=== PATIENT | female | born 1980 | race Caucasian/White ===

== ENCOUNTER 2017-12-09 07:00 | Day surgery (SDC) | payer OTHER ==
[~2017-12-09] VITALS: Ht 160 cm; Wt 81.7 kg
--- NOTE | 2017-12-09 09:11 | NUR ---
12/09/17 0911 Mattie Masterson 0912 PT ARRIVED WITH ORAL AIRWAY IN PLACE, RESP EVEN AND UNLABORED, ON 6L VIA MASK. PT NONAROUSABLE TO PAINFUL STIMULI. HEAD TILTED BACK TO MAINTAIN AIRWAY.
--- NOTE | 2017-12-09 09:58 | NUR ---
PT ARRIVES TO DS AWAKE AND ALERT. PT DENIES ANY NAUSEA AND RATES PAIN 3/10 AND SAYS "FEELS SIMILAR TO STREP THROAT." PT PROVIDED WATER, JELLO AND POPCICLE ON ARRIVAL. PT TOLERATES PO WELL SO FAR. SCD'S IN PLACE, CALL LIGHT AT PT LEFT SIDE. NO C/O AT THIS TIME.
--- NOTE | 2017-12-09 10:46 | NUR ---
PT DOING WELL, STATES PAIN IS NO WORSE THAN ON ARRIVAL. PT DENIES ANY NAUSEA AND IS TOLERATING PO. PT CURRENTLY EATING JELLO. PT MOTHER AT BEDSIDE. ENCOURAGED TO USE CALL LIGHT FOR ANY PROBLEMS.
--- NOTE | 2017-12-09 11:19 | NUR ---
PT USES CALL LIGHT TO LET RN KNOW SHE FEELS THE URGE TO VOID. PT UP TO BR WITH RN ASSIST. PT AMBULATES TO BR WELL, BUT ONCE IN BR PT STATES, "I FELT LIKE I WAS GOING TO PASSOUT." AND SAT DOWN ON THE FLOOR. PT USES BR CALL LIGHT FOR ASSISTANCE IN GETTING UP AND BACK TO RM. VSS ONCE IN RM. PT PROVIDED COLD WASH CLOTH TO PLACE ON FOREHEAD. ONCE IN RM PT STATES SHE NO LONGER FEELS DIZZY AND IS "FELLING BETTER."
[2017-12-09] MEDS ORDERED: HYDROCODONE-AC473 ML PO (11:24)
--- NOTE | 2017-12-09 12:30 | NUR ---
[id number]: DC CRITERIA MET AND PT WOULD LIKE TO GO HOME. DC INSTRUCTIONS GIVEN TO PT IN PRESENCE OF PT AND MOTHER AT BEDSIDE. PT HAD QUESTIONS REGARDING MEDICATION. QUESTIONS ANSWERED. PT DC'S VIA WC FROM [facility] RM 4.
--- NOTE | 2017-12-09 15:02 | NUR ---
PT IS ALERT AND ORIENTED. HER MOTHER CHIP WAS PRESENT FOR SUPPORT. PT REALLY SEEMS RADY FOR SOME RELIEF-SHE IS A BUSY MOTHER OF 4 CHILDREN AND NEEDS TO FEEL BETTER TO CARE FOR THEM. PT SEEMED PREPARED REQUESTED PRAYER, WILL FOLLOW NEEDED
--- NOTE | 2017-12-09 16:06 | OR ---
[facility] [address] [place], [place] [address] Signed DATE OF OPERATION: 12/09/2017 SURGEON: Greg Schroeder MD PREOPERATIVE DIAGNOSIS: Chronic tonsillitis. POSTOPERATIVE DIAGNOSIS: Chronic tonsillitis. PROCEDURE: Tonsillectomy. ANESTHESIA: General orotracheal; NOZZLE AND SLEEVE WORKER, Tomeka Zhang. PREOPERATIVE HISTORY: Pilar is a 37-year-old lady with chronic tonsillitis, multiple infections, and taken to the operating room for the above-mentioned procedure. OPERATIVE PROCEDURE AND FINDINGS: After informed consent, the patient was taken to the operating room and placed in the supine position where general orotracheal anesthesia was induced. The patient and the procedure were verified. The patient was repositioned. McIvor mouth gag placed into suspension. Headlight exam of the pharynx showed chronically infected appearing . Tonsils 2+, obstructive, nonacute. Left tonsil was grasped with a tenaculum, retracted medially and removed from its fossa with mucosal sparing incisions with coblation. The field was dry after the procedure. Same procedure on the right tonsil. Tonsils were sent to pathology. Re-inspection of the tonsil fossa showed no bleeding points. The pharynx was suctioned clear of blood secretions. The mouth gag was removed. The patient was awakened, extubated, and transported to the recovery room in good condition. COMPLICATIONS: No complications. BLOOD LOSS: Minimal. SPECIMEN: Electronically Signed By: GREG SCHROEDER MD 12/09/17 1606 PATIENT NAME: PILAR RODRÍGUEZ OPERATIVE REPORT DATE OF : 80 REPORT #: [id number] PHYSICIAN: GREG SCHROEDER MD PCP: NO PRIMARY CARE PHYSICIAN REPORT IS CONFIDENTIAL AND NOT TO BE RELEASED WITHOUT AUTHORIZATION [address], [place] [address] Signed To pathology. DRAINS: No drains. Greg Schroeder MD GC/MODL /[id number] Copies: ~ Electronically Signed By: GREG SCHROEDER MD 12/09/17 1606 PATIENT NAME: PILAR RODRÍGUEZ OPERATIVE REPORT DATE OF : 80 REPORT #: [id number] PHYSICIAN: GREG SCHROEDER MD PCP: NO PRIMARY CARE PHYSICIAN REPORT IS CONFIDENTIAL AND NOT TO BE RELEASED WITHOUT AUTHORIZATION
== END 2017-12-09 12:00 | disposition home or self-care (01) ==
LOC: DS 07:00 → OPS 08:00 → DS 12:00
PROVIDERS: Otolaryngology
PROC: 0C5PXZZ Destruction of Tonsils, External Approach (ICD-10-PCS; principal; 2017-12-09 08:00)
DX: J35.01 Chronic tonsillitis (principal); Z88.0 Allergy status to penicillin; Z88.1 Allergy status to other antibiotic agents; Z98.890 Other specified postprocedural states
CPT/HCPCS: 00170; J1100; J1170; J2250; J2405; J2704; J3010; J7040; J7120

== ENCOUNTER 2021-03-13 14:05 | Inpatient (IN) | payer OTHER ==
[~2021-03-13] VITALS: Ht 165.1 cm; Wt 96.2 kg
--- NOTE | ~2021-03-13 | OR ---
[facility] [address] [place], [place] [address] Draft DATE OF OPERATION: 03/19/2021 SURGEON: Gilda Arce MD FAN ENGINE ENGINEER: Misa Stallings DO. PREOPERATIVE DIAGNOSES: Term , previous section, chronic hypertension. POSTOPERATIVE DIAGNOSES: Term , previous section, chronic hypertension, delivered. PROCEDURE: Repeat section with low segment transverse uterine incision. ANESTHESIA: Spinal. ESTIMATED BLOOD LOSS: 600 mL. DRAINS: Ballesteros catheter. INDICATIONS AND FINDINGS: The patient is a 40-year-old female, 6, para 1-1, VIP 2, SAB 1, living 4, admitted at 39 weeks for a repeat section. She has a history of chronic hypertension. Patient also had COVID on February 27, 2021. She is currently asymptomatic. She was taken to the operating room where she was delivered of a little boy via lower segment transverse uterine incision with Apgars of 8 and 9, weight of 6 pounds 5 ounces. There was a nuchal cord x1 loose. The uterus, tubes, ovaries, and placenta appeared normal. DESCRIPTION OF PROCEDURE: The patient was prepped and draped in the supine position. A repeat Pfannenstiel skin incision was made and carried down through the fascia. The incision was extended laterally. The inferior and superior fascial flaps were then created. The muscles were bluntly divided. The peritoneum was entered sharply and the incision extended superiorly and inferiorly. The Weston retractor was then placed. The uterine incision PATIENT NAME: BENY RODRÍGUEZ OPERATIVE REPORT DATE OF : 80 REPORT #: [id number] PHYSICIAN: GILDA ARCE MD PCP: NEHEMIAS ANTONIO MD REPORT IS CONFIDENTIAL AND NOT TO BE RELEASED WITHOUT AUTHORIZATION [facility] [address] [place] [id number] Draft was made at the upper aspect of the peritoneal reflection and the incision extended bluntly. The baby was delivered with the above findings and handed off to the pediatric staff in attendance. The placenta was removed manually. The uterus was explored showing no remaining fragments. The edges of the incision were identified and the uterus closed in 2 layers using 0 Monocryl. The first layer was a running locking stitch and the second was a vertical imbricating stitch. An additional [id number]-yr-[id number] was required near the right angle for control of bleeding. The abdomen was then copiously irrigated and inspected and bleeding points on the peritoneum were controlled with cautery. Good hemostasis was noted. The retractor was removed and the peritoneum identified. Nasal graft was laid over the lower segment to aid in healing. The peritoneum was then closed in a running suture of 3-0 Vicryl. The muscles were brought together with interrupted sutures of 0 Vicryl. Bleeding points were controlled with cautery. There was an area, which required a second ojphbw-am-jctyu of 0 Vicryl for control of bleeding. This layer just appeared quite raw. The muscles were sprinkled with Urban to aid in hemostasis. This was followed by ACell powder to aid in healing. The fascia was then closed from each angle to the midline with a running suture of 0 Vicryl. The subcu was irrigated, inspected, and bleeding points were controlled with cautery. The deep space was closed with interrupted sutures of 3-0 Vicryl. The skin was closed with ling. All sponge and needle counts were correct. She tolerated procedure well and was taken to the recovery room in good condition. MD RIVAS CrowderW/LIZAL /[id number] cc: Misa Stallings DO Copies: MISA STALLINGS DO ~ PATIENT NAME: BENY RODRÍGUEZ OPERATIVE REPORT DATE OF : 80 REPORT #: [id number] PHYSICIAN: IGLDA ARCE MD PCP: NEHEMIAS ANTONIO MD REPORT IS CONFIDENTIAL AND NOT TO BE RELEASED WITHOUT AUTHORIZATION
[~2021-03-13 14:05] MED LIST: HYDROCODONE-AC473 ML PO
--- NOTE | 2021-03-19 10:37 | NUR ---
03/19/21 Sonya Márquez- PT ARRIVES TO [facility] ROOM #[address] ALERT AND ORIENTED. PT REPORTS NO PAIN OR NAUSEA. PT SAT UP SLIGHTLY IN BED. PT REPORTS NO DIZZINESS WITH THIS. PT'S SIGNIFICANT OTHER AND BABY AT THE BEDSIDE.
[2021-03-20] MEDS ORDERED: PROCARDIA XL90 MG PO (00:40)
[2021-03-20] MEDS ORDERED: ADULT ASPIRIN R81 MG PO (00:41)
--- NOTE | 2021-03-20 07:56 | PR ---
[facility] [address] [facility] [place], [place] [address] Signed PP Progress Notes Datetime Report Generated by LAMINE: 03/20/2021 07:56 SUBJECTIVE: [id number] Pain: Within Normal Limits Nausea/Vomiting: Denies Flatus: Yes Vital Signs: [id number] Vital Signs: Reviewed Notable Details: intermittent severe HTN Cardiovascular: Normal Respiratory: Normal Abdomen/Uterus: Abnormal Lochia: Normal Vulva/Perineum: Not Done Breasts: Not Done CVA Tenderness: Not Done Extremities: Normal Incision: Normal Progress: Normal Exam Comments: Abdomen with active BS. Fundus firm, NT @ U-1. H/H 9.6/28.2, WBC 10.8, plat 360k IMPRESSION/PLAN/PROCEDURES: [id number] Impression: Normal Progression Other Impression: chronic HTN Other Plans: ambulate, shower, start Procardia Progress Notes: Overall she is doing well though she has had intermittent severe BPs. I do think restarting the Procardia is needed but she may do well with a lower dose--60 mg instead of 90 mg. Signing Physician: Gilda Arce MD Copies: ~ *Electronically Signed* 03/20/21 0756 GILDA ARCE MD PATIENT NAME: BENY RODRÍGUEZ PROGRESS NOTE DATE OF : 80 PHYSICIAN: GILDA ARCE MD RPT #: [id number] REPORT IS CONFIDENTIAL AND NOT TO BE RELEASED WITHOUT AUTHORIZATION
--- NOTE | 2021-03-21 08:05 | PR ---
[facility] [address] [facility] [place], [place] [address] Signed PP Progress Notes Datetime Report Generated by CPN: 03/21/2021 08:05 SUBJECTIVE: [id number] Pain: Within Normal Limits Nausea/Vomiting: Denies Flatus: Yes Vital Signs: [id number] Vital Signs: Reviewed Notable Details: mild HTN Cardiovascular: Not Done Respiratory: Not Done Abdomen/Uterus: Abnormal Lochia: Normal Vulva/Perineum: Not Done Breasts: Not Done CVA Tenderness: Not Done Extremities: Normal Incision: Normal Progress: Normal Exam Comments: Fundus firm, NT @ U-2. IMPRESSION/PLAN/PROCEDURES: [id number] Impression: Normal Progression Other Impression: chronic HTN Plan: Remove [place]; Discharge Other Plans: ambulate, shower, start Procardia Procedures: None Progress Notes: Doing well. She is ready for D/C. Signing Physician: Gilda Arce MD Copies: ~ *Electronically Signed* 03/21/21804 GILDA ARCE MD PATIENT NAME: BENY RODRÍGUEZ PROGRESS NOTE DATE OF : 80 PHYSICIAN: GILDA ARCE MD RPT #: [id number] REPORT IS CONFIDENTIAL AND NOT TO BE RELEASED WITHOUT AUTHORIZATION
== END 2021-03-21 10:15 | disposition home or self-care (01) | DRG 787 ==
LOC: FBC 03-19 06:00
PROVIDERS: ADMIT Obstetrics & Gynecology; ATTEND Obstetrics & Gynecology
PROC: 10D00Z1 Extraction of Products of Conception, Low, Open Approach (ICD-10-PCS; principal; 2021-03-19 08:30)
DX: O34.211 Maternal care for low transverse scar from previous cesarean delivery (principal); O10.92 Unspecified pre-existing hypertension complicating childbirth; Z3A.39 39 weeks gestation of pregnancy; Z37.0 Single live birth; O69.81X0 Labor and delivery complicated by cord around neck, without compression, not applicable or unspecified; Z98.890 Other specified postprocedural states; Z86.16 Personal history of COVID-19; O99.824 Streptococcus B carrier state complicating childbirth; Z88.0 Allergy status to penicillin; Z88.8 Allergy status to other drugs, medicaments and biological substances
CPT/HCPCS: 01960; 01961; 64488; 76942; 82565; 82570; 84156; 84450; 84520; 84550; 85027; 88307; A9270; J1100; J1644; J2001; J2274; J2300; J2370; J2405; J2590; J2795; J3010; J7121